=== PATIENT | female | born 1960 | race Caucasian/White ===

== ENCOUNTER 2023-04-15 09:55 | Outpatient (CLI) | payer MEDICARE, BC, SELFPAY ==
--- NOTE | 2023-04-15 10:00 | CT_ITS ---
Final Report Patient: RANJAN SHEPHERD Facility:?[facility] Patient ID:?[id number] Site Patient ID:?[id number] Site :?[id number] Study:?CT Sinus W/O-04/15/2023 10:36:52 AM Ordering Physician:?Laura HANKINS Final Report: Indication: CHRONIC SINUSITIS Technique: Performed without IV contrast Comparison: None available Findings: Frontal sinuses: Clear. Ethmoid sinuses: Clear. Maxillary sinuses: Clear. The maxillary sinus drainage pathways are patent on both sides. Sphenoid sinuses: Mild mucosal thickening within the right anterior sphenoid sinus, as before. Normal left sphenoid sinus with patent sinus drainage pathway. Nasal Cavity: Prior surgery noted. No nasal polyps. Nasal turbinate mucosa is somewhat atrophied. Degenerative changes are present at the right temporomandibular joint. Impression: 1. Minimal right sphenoid sinus disease. 2. Remaining sinuses are clear. Midline nasal septum. Please note that all CT scans at this facility use dose modulation, iterative reconstruction, and/or weight-based dosing when appropriate to reduce radiation dose to as low as reasonably achievable. Dictated by Kamari Jewell MD @ 04/15/2023 11:08:05 AM (Electronic Signature)
== END 2023-04-15 09:56 | disposition home or self-care (01) ==
LOC: CT 09:59
PROVIDERS: PCP Internal Medicine; Visit Provider Otolaryngology
DX: J32.9 Chronic sinusitis, unspecified (principal)
CPT/HCPCS: 70486

== ENCOUNTER 2023-04-22 20:59 | Outpatient (CLI) | payer MEDICARE, BC, SELFPAY ==
--- NOTE | 2023-05-08 12:05 | W.PM.SLEEP ---
Sleep Study Details Details Interpreting Provider: Dimitris Date of Sleep Study: 04/22/23 Sleep Study Details: STUDY TYPE:? Hospital-based attended ? BMI:? 24.3 ORDERING PROVIDER: Dimitris INDICATION:? Concerns about sleep apnea ? SLEEP SUMMARY: 316 minutes total sleep time RESPIRATORY SUMMARY:? Mean oxygen awake 94 asleep 94, minimum 88. 0.3% of study oxygen between 80 and 88% AHI 17.5, supine AHI 37.9, nonsupine AHI 0.7 there was no supine REM sleep seen PERIODIC LIMB MOVEMENTS OF SLEEP:? None noted CARDIAC:? Awake 90 asleep 88. No arrhythmias IMPRESSION:? Moderate obstructive sleep apnea isolated to the supine position. No REM stage sleep was seen during this study. RECOMMENDATION: Treatment options include AutoSet CPAP, dental appliance and a trial of lateral sleep.
== END 2023-04-22 21:00 | disposition home or self-care (01) ==
LOC: SLEEP 21:00
PROVIDERS: PCP Internal Medicine; Visit Provider Otolaryngology
DX: G47.33 Obstructive sleep apnea (adult) (pediatric) (principal)
CPT/HCPCS: 95810

== ENCOUNTER 2023-07-19 09:50 | Outpatient (CLI) | payer MEDICARE, BC, SELFPAY ==
--- NOTE | 2023-07-19 10:57 | W.ANESCHARGE ---
Anesthesia Charges Start Date/Time Anesthesia Start Date: 07/19/23 Anesthesia Start Time: 10:28 Stop Date/Time Anesthesia Stop Date: 07/19/23 Anesthesia Stop Time: 10:53
--- NOTE | 2023-07-19 10:58 | W.ANESCHARGE ---
Anesthesia Charges Start Date/Time Anesthesia Start Date: 07/19/23 Anesthesia Start Time: 10:28 Stop Date/Time Anesthesia Stop Date: 07/19/23 Anesthesia Stop Time: 10:53
== END 2023-07-19 09:51 | disposition home or self-care (01) ==
LOC: OP CLINIC 09:50
PROVIDERS: PCP Internal Medicine; Visit Provider Internal Medicine
DX: K52.9 Noninfective gastroenteritis and colitis, unspecified (principal)
CPT/HCPCS: 00811; 00812; 45380; 88305; J2704

== ENCOUNTER 2024-08-07 07:35 | Outpatient (CLI) | payer MEDICARE, BC, SELFPAY | END 2024-08-07 07:36 | disposition home or self-care (01) | LOC: NFLDREF 08-10 15:39 | PROVIDERS: PCP Internal Medicine; Referring Provider Internal Medicine; Visit Provider Internal Medicine | DX: E78.5 Hyperlipidemia, unspecified (principal); Z13.1 Encounter for screening for diabetes mellitus | CPT/HCPCS: 80061; 82947 ==

== ENCOUNTER 2024-09-03 12:54 | Outpatient (CLI) | payer MEDICARE, BC, SELFPAY ==
--- NOTE | 2024-09-03 13:00 | CRLHL7_ITS ---
For Patients: As a result of the Century Cures Act, medical imaging exams and procedure reports are released immediately into your electronic medical record. You may view this report before your referring provider. If you have questions, please contact your health care provider. DXA BONE MINERAL DENSITY STUDY Reason for exam: Asymptomatic menopausal state. Current height (in): 64.5. Weight (lb): 123. Menopause age: Not provided. Ethnicity: White. 1. Have you had a previous hip or vertebral fracture? No. 2. Have you had any fractures during your adult life which did not result from significant trauma (e.g., auto accident)? No. 3. Did either of your parents have a hip fracture? No. 4. Do you smoke? No. 5. Have you ever taken Glucocorticoids? No. 6. Do you have rheumatoid arthritis? No. 7. Do you have secondary osteoporosis? No. 8. Do you drink 3 or more alcoholic drinks per day? No. 9. Are you being treated for osteoporosis? No. 10. Have you ever taken any of the following medications: Actonel, Evista, Fosamax, Miacalcin, Reclast, Boniva, Forteo, HRT (i.e. estrogen/hormone therapy), Protelos, Prolia, Vitamin D, Calcium, other ??? please specify. ANSWER: Yes, Vitamin D and Calcium. 11. Do you have any of the following medical conditions: Anorexia or bulimia, asthma or emphysema, end stage renal disease, hyperparathyroidism, any seizure disorders, cancer, inflammatory bowel diseases, hysterectomy, other ??? please specify. ANSWER: Yes, hysterectomy. 12. What was your maximum height (inches)? 65. 13. Do you perform weight bearing exercise regularly? No. 14. Do you regularly consume dairy products? No. 15. Do you drink caffeinated beverages? No. 16. At what age did your period start? 11. 17. Are you premenopausal? No. 18. How many full term pregnancies have you had? 2. 19. Have you ever missed your period for more than 6 months in a row (not including or menopause)? No. TECHNIQUE: Bone mineral density study was performed using the [email or web address]. FINDINGS: The results of the study expressed as bone mineral density (BMD) are as follows: Lumbar spine L1 to L4: BMD: 0.816 g/cm2. T-score: -2.1. Z-score: -0.2. Neck Left: BMD: 0.607 g/cm2. T-score: -2.2. Z-score: -0.6. Right: BMD: 0.598 g/cm2. T-score: -2.3 . Z-score: -0.7. Total Left: BMD: 0.761 g/cm2. T-score: -1.5 . Z-score: -0.2. Right: BMD: 0.747 g/cm2. T-score: -1.6. Z-score: -0.3. IMPRESSION: Osteopenia. *Comparison exams done prior to 07/2019 were performed on different unit, [employer]. FRAX 10-year Fracture Risk Major Osteoporotic Fracture: 11 percent Hip Fracture: 2.1 percent Reported Risk Factors: [place] () Neck BMD=0.598, BMI=20.8 Fanny Wheat M.D. Diagnostic Radiologist [email or web address]/[email or web address] SP/Dictated by: Fanny Wheat MD @ 09/07/2024 7:13:00 AM (Electronically Signed)
== END 2024-09-03 12:55 | disposition home or self-care (01) ==
LOC: RAD 12:56
PROVIDERS: PCP Internal Medicine; Visit Provider Internal Medicine
DX: Z78.0 Asymptomatic menopausal state (principal); M85.89 Other specified disorders of bone density and structure, multiple sites
CPT/HCPCS: 77080